=== PATIENT | male | born 1985 | race Caucasian/White ===

== ENCOUNTER 2019-06-24 20:55 | Emergency (ER) | payer OTHER ==
[~2019-06-24] VITALS: Ht 175.3 cm; Wt 81.6 kg
[2019-06-24 21:45] VITALS: BP_SYST 150
--- NOTE | 2019-06-24 21:47 | NUR ---
Patient triaged and placed in waiting room. VSS and patient appears in no acute distress at this time. Accompanied by family, awaiting available bed, and MD notified of need for MSE.
--- NOTE | 2019-06-25 00:15 | NUR ---
Patient left without being seen. No further treatment done. ER MD aware
--- NOTE | 2019-06-25 00:15 | NUR ---
Called in x 3, no answer
== END 2019-06-25 00:15 | disposition left against medical advice (07) ==
LOC: SED 20:55
DX: R11.10 Vomiting, unspecified (principal); R05 Cough; Z53.21 Procedure and treatment not carried out due to patient leaving prior to being seen by health care provider